=== PATIENT | female | born 1980 | race Caucasian/White ===

== ENCOUNTER 2017-06-09 13:18 | Emergency (ER) | payer OTHER ==
[~2017-06-09] VITALS: Ht 180.3 cm; Wt 79.4 kg
--- NOTE | ~2017-06-09 | EKG ---
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
[2017-06-09] MEDS ORDERED: [UNRECOGNIZED DRUG - OTHER] PO (13:53)
[2017-06-09] MEDS ORDERED: ASPIR 8181 MG PO (13:53)
[2017-06-09 14:05] LABS: BASOPHILS 0.6 % (0.0-2.0); EOSINOPHILS 0.9 % (0.0-3.0); HEMATOCRIT 40.2 % (37.0-47.0); HEMOGLOBIN 13.8 gm/dL (12.0-15.0); LYMPHOCYTES 29.1 % (24.0-44.0); MCH 33.3 pg (26.0-34.0); MCHC 34.3 g/dL (28.0-37.0); MCV 97.3 fL (80.0-100.0); MONOCYTES 7.9 % (1.0-8.0); PLATELET COUNT 152 thou/uL (150-400); POLYS 61.5 % (36.0-66.0); RBC 4.13 mil/uL (4.20-5.00); RDW 12.3 % (10.5-14.5); WBC 8.1 thou/uL (4.0-11.0)
[2017-06-09 14:06] LABS: MANUAL DIFF NO
[2017-06-09 14:13] LABS: ANION GAP 6 mmol/L (7-16); BUN 8 mg/dL (7-18); CALCIUM 8.9 mg/dL (8.5-10.1); CHLORIDE 107 mmol/L (98-107); CO2 23 mmol/L (21-32); CREATININE 0.8 mg/dL (0.6-1.0); GLUCOSE 109 mg/dL (74-106); POTASSIUM 3.7 mmol/L (3.5-5.1); SODIUM 136 mmol/L (136-145)
[2017-06-09 14:22] LABS: TROPONIN-I < 0.04 ng/mL (<0.04-0.07)
[2017-06-09 17:17] VITALS: BP 101/77
== END 2017-06-09 17:17 | disposition home or self-care (01) ==
LOC: ER 13:18
PROVIDERS: Emergency Medicine
DX: R07.9 Chest pain, unspecified (principal); F17.210 Nicotine dependence, cigarettes, uncomplicated; Z79.82 Long term (current) use of aspirin

== ENCOUNTER 2020-04-17 13:51 | Emergency (ER) | payer BC, OTHER ==
[~2020-04-17] VITALS: Ht 180.3 cm; Wt 77.1 kg
--- NOTE | ~2020-04-17 | HC ---
[facility] [place] [address] CONSULTATION Name: FLORA TRIANA Room #: 170-10 ADM IN M.R.#: [id number] Admission: 04/17/20 Attend Phys: Issac Pearson MD Discharge: Date of : 78 Report #: [id number] THIS REPORT FOR: cc: Keagan Foster MD,Agustin Danielle MD, MD ~ CC: Issac Foster DATE OF SERVICE: 04/17/2020 HISTORY OF PRESENT ILLNESS: This is a 40-year-old female patient who was seen by me for stroke-like symptoms. This patient presented with acute onset of weakness and numbness on the left side. She said the symptoms were becoming better. She said she had strokes in the past, who are on the left side. For the stroke happened during her , she was found to have a hypercoagulable disorder. She was given Lovenox. Subsequently, she was put on morphine. Morphine was stopped. History is not very clear why it was stopped. One time she said she stopped it because she wants to try the diet, other time she said her furnace process plant operator did not find the abnormality. She follows up with Dr. Foster. REVIEW OF SYSTEMS: Positive for some clotting disorder and she follows up with a furnace process plant operator. She does indicate that she is under stress. She smokes. She uses alcohol, but she says in moderation. This was a relevant 14-point review of system. PAST MEDICAL HISTORY: Positive for stroke. FAMILY HISTORY: Negative for any early age stroke. SOCIAL HISTORY: The patient smokes. PHYSICAL EXAMINATION: Indicate she is alert. She is responsive. She is able to follow simple command. 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 Her speech looks unremarkable. Cranial nerve examination 2-12 does not appear to be showing any abnormality. She does not have any hemianopsia. She said she can feel, touch and pinprick on both sides, but it does not feel the same. I am not sure she gives a good effort. She is able to have a good position sense on both sides. Reflexes are symmetrical. Her blood pressure was running low, around 107, but she is not on any hypertensive. Pulse rate is 63. She did have a CT angiogram, which was completely unremarkable. CT was unremarkable. IMPRESSION: I talked to the patient that she does not appear to have any ischemic event. History is not very classical. Even there are a lot of gaps in her prior history also which need to be filled up by getting [place] [address] CONSULTATION Name: FLORA TRIANA Room #: 170[facility] ADM IN [facility].#: [id number] Admission: 04/17/20 Attend Phys: Issac Pearson MD Discharge: Date of : 78 Report #: [id number] there because she provides somewhat of an unusual history. RECOMMENDATIONS: My recommendation was to get admitted. We will do an echo to look for patent foramen ovale. We will try to keep her blood pressure high. We will try to get the records from her prior hospitalization, and I discussed all of it with in detail, but Emergency Room physician tells me that she wanted to go home. I told her that because of her history of hypercoagulable disorder, I think she should stay here. I spent about 50 minutes of time taking care of this patient and majority of that time was spent counseling and coordinating and reviewing her imaging studies and the records. Thank you very much for this referral. By: 06 31 Agustin Torres MD /nt
[~2020-04-17 13:51] MED LIST: ASPIR 8181 MG PO; [UNRECOGNIZED DRUG - OTHER] PO
[2020-04-17 13:54] VITALS: BP 122/77
--- NOTE | 2020-04-17 14:17 | NUR ---
this RN escorts patient to CT scan. patient becomes short of breath with exertion and very unstable on feet. Near fall when transferring to ct scan table. QAMAR Patel notified as well as Dr Mederos.
[2020-04-17 14:20] LABS: ABSOLUTE NEUTROPHILS 3.7 thou/uL (1.4-8.2); BASOPHILS 0.9 % (0.0-2.0); EOSINOPHILS 1.3 % (0.0-3.0); HEMATOCRIT 41.1 % (37.0-47.0); LYMPHOCYTES 31.8 % (24.0-44.0); MCHC 34.2 g/dL (28.0-37.0); MCV 99.6 fL (80.0-100.0); MONOCYTES 9.3 % (1.0-8.0); PLATELET COUNT 176 thou/uL (150-400); POLYS 56.7 % (36.0-66.0); RBC 4.12 mil/uL (4.20-5.00); RDW 12.3 % (10.5-14.5); WBC 6.5 thou/uL (4.0-11.0)
[2020-04-17 14:30] LABS: ANION GAP 11 mmol/L (7-16); BUN 8 mg/dL (7-18); CALCIUM 8.5 mg/dL (8.5-10.1); CHLORIDE 104 mmol/L (98-107); CO2 23 mmol/L (21-32); CREATININE 0.9 mg/dL (0.6-1.0); GLUCOSE 108 mg/dL (74-106); POTASSIUM 3.8 mmol/L (3.5-5.1); SODIUM 138 mmol/L (136-145)
[2020-04-17 14:36] LABS: ALBUMIN 3.6 g/dL (3.4-5.0); DIRECT BILIRUBIN < 0.1 mg/dL (<0.1-0.2); SGOT 15 U/L (15-37); SGPT 21 U/L (30-65); TOTAL BILIRUBIN 0.3 mg/dL (0.2-1.0); TOTAL PROTEIN 7.3 g/dL (6.4-8.2)
[2020-04-17 17:03] VITALS: BP 84/60
[2020-04-17 17:06] VITALS: BP 102/59
[2020-04-17 17:24] VITALS: BP 107/60
[2020-04-17] MEDS ORDERED: PLAVIX 300 MG300 M1 PO (18:15)
== END 2020-04-17 17:26 | disposition still patient (30) ==
LOC: ER 13:51 → EROBS 16:53
PROVIDERS: Emergency Medicine
DX: G45.9 Transient cerebral ischemic attack, unspecified (principal); D68.9 Coagulation defect, unspecified; R06.02 Shortness of breath; R42 Dizziness and giddiness; F17.210 Nicotine dependence, cigarettes, uncomplicated; Z86.73 Personal history of transient ischemic attack (TIA), and cerebral infarction without residual deficits; Z79.82 Long term (current) use of aspirin; Z79.899 Other long term (current) drug therapy